=== PATIENT | female | born 1990 | race Caucasian/White ===

== ENCOUNTER → 2024-04-07 15:30 | Outpatient (CLI) | payer OTHER, SELFPAY ==
[2024-04-07 15:57] LABS: Add Manual Diff / Slide Review NO; Basophils Absolute Auto 0 /uL (0-100); Basophils Percent Auto 0.1 % (0-2); Eosinophils Absolute Auto 100 /uL (0-450); Eosinophils Percent Auto 0.5 % (2-4); Hematocrit 37.7 % (36-46); Hemoglobin 13.1 g/dL (12.0-16.0); Lymphocytes Absolute Auto 1700 /uL (1100-4500); Lymphocytes Percent Auto 15.8 % (25-40); Mean Corpuscular HGB Conc 34.6 % (30-36); Mean Corpuscular Hemoglobin 33.8 PG (26-34); Mean Corpuscular Volume 97.7 fL (80-100); Monocytes Absolute Auto 500 /uL (0-900); Monocytes Percent Auto 4.4 % (3-14); Neutrophils Absolute Auto 8600 /uL (1500-7000); Neutrophils Percent Auto 79.2 % (50-75); Platelet Count 229 X10^3/uL (150-400); Red Blood Cell Count 3.86 X10^6/uL (4.0-5.2); Red Cell Distribution Width 13.3 % (11.6-14.8); White Blood Cell Count 10.8 X10^3/uL (4.5-11.0)
[2024-04-07 16:53] LABS: Appearance Urine UA CLEAR; Bilirubin Urine UA NEGATIVE (NEGATIVE); Color Urine UA YELLOW; Glucose Urine UA NEGATIVE (Negative); Ketones Urine UA NEGATIVE (NEGATIVE); Leukocyte Esterase Urine UA NEGATIVE (NEGATIVE); Nitrite Urine UA NEGATIVE (Negative); Occult Blood Urine UA NEGATIVE (Negative); Protein Urine UA NEGATIVE (Negative); Specific Gravity Urine UA <=1.005 (1.000-1.035); Urobilinogen Urine UA 0.2 E.U./dL (0.2)
[2024-04-07 16:56] LABS: pH Urine UA 5.5 (4.5-8.0)
[2024-04-07 17:14] LABS: Hepatitis B Surface Antigen NEGATIVE s/c (NEGATIVE); Rubella Antibody IgG 9.7 IU/mL (>15)
[2024-04-07 17:19] LABS: HIV 1 & 2 Ab/Ag 4th Gen Combo NEGATIVE (NEGATIVE); Hep C Virus Ab w/Reflex Quant NEGATIVE s/c (NEGATIVE)
[2024-04-09 09:39] LABS: Varicella IgG Antibody 857 index (Immune >165)
[2024-04-11 02:55] LABS: RPR Screen Non Reactive (Non Reactive)
== END ==
PROVIDERS: PCP Family Medicine; Referring Provider Family Medicine; Visit Provider Family Medicine
DX: Z34.80 Encounter for supervision of other normal pregnancy, unspecified trimester (principal)
CPT/HCPCS: 36415; 80055; 81003; 86787; 86803; 86850; 86900; 86901; 87086; 87389

== ENCOUNTER → 2024-05-05 10:54 | Outpatient (CLI) | payer OTHER, SELFPAY ==
[2024-05-09 07:22] LABS: AFP, Serum 43.5 ng/mL (.); Estriol, Free 1.74 ng/mL (.); Inhibin A, Dimeric 184.74 pg/mL (.); Inhibin A, MoM 1.09 (.); Maternal Ethnicity Caucasian (.); Maternal Weight 127 lbs (.); Number of Fetuses No (.); OSBR Risk 1 IN 10000 (.); Results Report (.); Test Results *Screen Negative* (.); hCG, MoM 0.45 (.); hCG, Serum 16538 mIU/mL (.)
== END ==
PROVIDERS: PCP Family Medicine; Referring Provider Family Medicine; Visit Provider Family Medicine
DX: Z34.80 Encounter for supervision of other normal pregnancy, unspecified trimester (principal)
CPT/HCPCS: 36415; 82105; 82677; 84702; 86336

== ENCOUNTER → 2024-05-25 15:16 | Outpatient (CLI) | payer OTHER, SELFPAY ==
--- NOTE | 2024-05-25 15:17 | DI.US.S_ITS ---
PROCEDURE: US OB >= 14 WEEKS FETUS INDICATIONS: anatomy scan OUTSIDE/PRIOR DATING DATA: Last menstrual period (LMP): 01/05/2024. LMP-based estimated date of delivery (EVELIN): 10/11/2024. TECHNIQUE: Real-time scanning was performed of the fetus, with image documentation and biometric measurements. Endovaginal scanning: Not performed COMPARISON: None. FINDINGS: General: A single living intrauterine gestation is present. Presentation: Breech. Placenta: Placental position is posterior , without previa. Amniotic fluid index: 10.3 cm, normal range is 5-24 cm. Single deepest vertical pocket is 3.1 cm. heart rate: 135 beats per minute, although distal rated 263 beats per minute. Maternal cervical canal: 4.2 cm long. Normal lower limit is 2.5 cm. biometrics: Biparietal diameter: 5.1 cm, 21 weeks 3 days Head circumference: 18.7 cm, 21 weeks 0 days Abdominal circumference: 18.2 cm, 23 weeks 0 days Femur length: 3.3 cm, 20 weeks 2 days Clinically estimated gestational age: 20 weeks 1 day Composite gestational age from present scan: 21 weeks 3 days Estimated weight and percentile: 448 g, 99th percentile Anatomic survey: Neuro: Ventricles are non-dilated at less than 10 mm. Cisterna magna is normal at 3-11 mm. Cerebellum is normal in size and morphology. Nuchal skin fold: Normal at less than 6 mm between 14-21 weeks gestational age. Face: Nose and lips, facial profile are normal. Spine: No evidence for spina bifida. Heart: 4-chambered heart is present, with normal ventricular outflow tracts. Diaphragm: Diaphragm is intact. Stomach: Left-sided stomach is present. Kidneys: No hydronephrosis. Normal is less than 5 mm in 2nd trimester, less than 7 mm in 3rd trimester. Cord: 3-vessel cord has orthotopic insertion. Bladder: Normal in size. Extremities: All 4 extremities identified. IMPRESSION: Single living intrauterine at 20 weeks 1 day, EVELIN of 10/11/2024. Focal heart rate decelerations down to 63 beats per minute. Short-term follow-up is indicated. Estimated weight of 448 g, 99th percentile. Normal anatomy otherwise. Accurate primary report sent to ordering provider by the technologist at the time of exam. We strive to produce accurate, complete, and clear reports of imaging services. To assist us in improving patient care, this report was composed using standard report templates and voice recognition software. Therefore, it may contain abnormal punctuation, insertions and/or omissions. Occasional wrong-word or sound-alike substitutions may occur. Though we review the report and make efforts to correct it, we do recommend that the report be read carefully in proper context to recognize any text inaccuracies. Dictated by: Gerald Gupta M.D. on 05/25/2024 at 16:55 Approved by: Gerald Gupta M.D. on 05/25/2024 at 16:58
== END ==
PROVIDERS: PCP Family Medicine; Referring Provider Family Medicine; Visit Provider Family Medicine
DX: O36.8320 Maternal care for abnormalities of the fetal heart rate or rhythm, second trimester, not applicable or unspecified (principal); Z3A.21 21 weeks gestation of pregnancy
CPT/HCPCS: 76811

== ENCOUNTER → 2024-06-27 11:09 | Outpatient (CLI) | payer OTHER, SELFPAY ==
[2024-06-27 13:01] LABS: Hematocrit 33.7 % (36-46); Hemoglobin 11.9 g/dL (12.0-16.0)
[2024-06-27 13:41] LABS: GTT (PREG) 1 Hour PP 50gm Dose 137 mg/dL (76-139)
== END ==
PROVIDERS: PCP Family Medicine; Referring Provider Family Medicine; Visit Provider Family Medicine
DX: Z34.80 Encounter for supervision of other normal pregnancy, unspecified trimester (principal)
CPT/HCPCS: 82950; 85014; 85018

== ENCOUNTER → 2024-09-13 15:47 | Outpatient (CLI) | payer OTHER, SELFPAY ==
[2024-09-16 15:36] LABS: Strep Grp B PCR POS for Grp B Strep
== END ==
PROVIDERS: PCP Family Medicine; Visit Provider Family Medicine
DX: Z34.93 Encounter for supervision of normal pregnancy, unspecified, third trimester (principal); Z3A.36 36 weeks gestation of pregnancy
CPT/HCPCS: 87653

== ENCOUNTER 2024-09-21 10:42 | Inpatient (IN) | payer OTHER, SELFPAY ==
--- NOTE | 2024-09-21 13:51 | P.HPOB_ITS ---
OB HPI Date/Time Date of admission: 09/21/24 Date Patient Seen: 09/21/24 Time Patient Seen: 13:00 History of Present Condition Chief complaint: OBS OF LABOR EVELIN Calculator Estimated Delivery Date Method Current WG Current Estimate 10/11/24 LMP (Certain) 37w 1d Estimated Gestational Age (weeks): 37+1 : 3 Para: 1 Narrative: 34-year-old at [place] 37+1 weeks presenting for contractions. Endorses normal movement. Denies vaginal bleeding or denies leakage of fluid. notable for anemia (on iron supplement), history of delivery. Noted onset of contractions around 6:00 a.m. this morning, became increasingly uncomfortable and closer together. care: good care Dating criteria OB: LMP confirmed by 1st trimester US Ultrasounds: normal 1st trimester US and normal mid trimester US Obstetrical complications: none Medical complications OB: other (anemia) Indications Operative indications ( section): previous uterine surgery Preadmission Labs Last OB Lab Results: Blood Type A Positive 04/07/24 15:34 Antibody Screen Negative 04/07/24 15:34 Hct 33.7 % (36-46) L 06/27/24 12:31 Hgb 11.9 g/dL (12.0-16.0) L 06/27/24 12:31 Hep Bs Antigen Negative s/c (NEGATIVE) 04/07/24 15:34 Hepatitis C Antibody Negative s/c (NEGATIVE) 04/07/24 15:34 Rubella Antibody 9.7 IU/mL (>15) L 04/07/24 15:34 VZV IgG Antibody 857 index (Immune >165) 04/07/24 15:34 Glucose 1 Hr 50 gm 137 mg/dL (76-139) 06/27/24 12:31 Group B Strep (PCR) Pos for grp b strep H 09/15/24 11:50 -: Chlamydia screen: unknown, Gonorrhea screen: unknown and Urine: negative Genetic Screens: Quad screen: Normal External Labs -: Urine: negative Prior (ies) Past Pregnancies Del. 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 Delivery Date: 07/30/23 Last Updated by: Vivi Zarate RN passed spontaneously, no complications Evaluation Evaluation Baseline heart rate: 130 Variability: Moderate (11-25) monitor accelerations: Present Monitor Decelerations: Absent Contraction Frequency (minutes): 3 Uterine Contraction Intensity: Moderate Category of Tracing: Reactive Status: Category l Dilation (cm): 3 Effacement (%): 70 station: -3 Position of cervix: posterior Consistency: soft PFSH Surgical History (Updated 03/10/24 @ 11:47 by Valerio Loving MD) [facility] teeth extracted Anesthesia History of hymenectomy (~1991) History of nasal surgery (~01/2012) History of section (~10/2020) Family History (Updated 02/17/24 @ 11:07 by Vivi Zarate RN) Father History of heart disease Hyperlipidemia Mother Hypothyroidism Fibromyalgia Grandfather Hypertension Stroke Lung cancer Smoker History of heart disease Heart attack Grandmother Diabetes mellitus Hypothyroidism Colon cancer Grandfather Hypertension Heart attack History of heart disease Smoker Grandmother Smoker Social History marital status: number of children: 1 household members: spouse and children lives independently: Yes caregiver/support person: Yes housing: house pets and animals: Yes (dogs) education level: college occupational status: unemployed current occupational exposures/hazards: No special kevin needs: No travel history: over 6 months ago seatbelt use: always helmet use: Yes water heater temp set < 120 deg: Yes working smoke detector in home: Yes fire extinguisher in home: Yes carbon monox detector in home: Yes firearms in home: No do you feel safe at home: Yes Smoking Status: Never smoker second hand exposure: No alcohol intake: former (very occasionally when not ) substance use type: does not use during the past year weight has: remained stable well-balanced diet: daily or most days daily servings fruits/ve or more times/day caffeine: Yes (1-2 cups coffee in AM) Type(s) of exercise: walking and other (hiking) Meds Home Medications and Allergies Home Medications Medication Instructions Recorded Confirmed Type famotidine 20 mg tablet 20 mg PO BEDTIME #30 tabs 07/26/24 09/15/24 Rx ferrous sulfate 137 mg (45 mg 137 mg PO DAILY #60 tabs 08/18/24 09/15/24 Rx iron) tablet,extended release vitamins no.121-iron 28 1 tab PO DAILY #90 tabs 08/18/24 09/15/24 Rx mg-folic acid 800 mcg tablet Allergies Allergy/AdvReac Type Severity Reaction Status Date / Time grass pollen AdvReac Unknown Verified 09/15/24 11:46 house dust mite AdvReac Unknown Verified 09/15/24 11:46 mold AdvReac Unknown Verified 09/15/24 11:46 ragweed pollen AdvReac Unknown Verified 09/15/24 11:46 tree and shrub pollen AdvReac Unknown Verified 09/15/24 11:46 OB Exam Narrative Exam Narrative: General: Well-nourished, no distress HEENT: NC/AT, EOMI, moist mucous membranes CV: RRR, normal S1 S2, no m/g/r Resp: CTAB Abd: Gravid, soft, NTND, +BS Ext: Full ROM, no edema Skin: No rash or lesions Neuro: A&O x3, normal tone, no focal deficits Assessment and Plan Assessment and Plan Assessment and Plan narrative: 34-year-old at [place] 37+1 weeks presenting for labor. notable for anemia and history of delivery. Cervix has changed from 1.5 cm to 3 cm dilation over the course of 2 hours with persistent contractions despite IV fluid bolus. -admit to L&D -urgent rLTCS due to onset of labor Consent form for section was reviewed with the patient. Risk of reaction to medication or anesthesia, risk of bleeding enough to require blood transfusion which she is agreeable to, risk of infection, risk of damage to internal structures such as bowel, bladder, ureters that could require additional surgery to repair. Consent form signed and questions answered. Pre- op instructions reviewed. Precautions reviewed. Time-Based Coding :: 40 minutes spent with patient and on the chart (including review of chart, obtaining history, exam, reviewing outside data, placing orders, documenting exam and treatment plan, and counseling patient) on 09/21/2024.
[2024-09-21 13:54] VITALS: BP 123/77
[2024-09-21] MEDS: CITRIC ACID/SODIUM CITRATE 15 ML SOLUTION 30 ML PO (14:08)
[2024-09-21] MEDS: LACTATED RINGERS 1,000 ML 999 ML IV ×2 (14:09→15:18)
[2024-09-21 14:18] LABS: Add Manual Diff / Slide Review NO; Basophils Absolute Auto 0 /uL (0-100); Basophils Percent Auto 0.1 % (0-2); Eosinophils Absolute Auto 0 /uL (0-450); Hematocrit 36.1 % (36-46); Hemoglobin 12.2 g/dL (12.0-16.0); Lymphocytes Absolute Auto 1000 /uL (1100-4500); Lymphocytes Percent Auto 6.7 % (25-40); Mean Corpuscular HGB Conc 33.8 % (30-36); Mean Corpuscular Hemoglobin 34.5 PG (26-34); Monocytes Absolute Auto 500 /uL (0-900); Monocytes Percent Auto 3.4 % (3-14); Neutrophils Absolute Auto 13700 /uL (1500-7000); Neutrophils Percent Auto 89.8 % (50-75); Platelet Count 170 X10^3/uL (150-400); Red Blood Cell Count 3.54 X10^6/uL (4.0-5.2); Red Cell Distribution Width 13.3 % (11.6-14.8); White Blood Cell Count 15.3 X10^3/uL (4.5-11.0)
[2024-09-21] MEDS: CEFAZOLIN 2 GM/100 ML PREMIX 100 ML IV (14:27)
--- NOTE | 2024-09-21 15:14 | SUR.OPER ---
Supine on Padded OR bed, head on pillow, safety belt at thigh, arms secured on padded arm boards at <90 degrees abduction. Bump under right buttock. Legs uncrossed and blanket to lower legs.
--- NOTE | 2024-09-21 15:36 | SUR.OPER ---
PRE-PROCEDURE HEART RATE 141 VIABLE BABY BOY BORN AT 14:57 PLACENTA DELIVERY AT 15:00 APGARS 9 FOR 1 MINUTE 9 FOR 5 MINUTES
[2024-09-21 15:55] VITALS: BP 100/29; PULSE 99; RESP 15; TEMP 36.1; O2SAT 100
[2024-09-21 16:00] VITALS: BP 91/50; PULSE 98; RESP 13; O2SAT 100
[2024-09-21 16:07] VITALS: BP 102/59; PULSE 104; RESP 14; TEMP 36.3; O2SAT 99
[2024-09-21] MEDS: ONDANSETRON 4 MG/2 ML INJ IV (17:56)
--- NOTE | 2024-09-21 18:26 | P.OP_ITS ---
Operative Date/Time/Diagnoses Date of procedure: 09/21/24 Time of procedure: 14:50 Pre-op diagnosis: Term labor, history of delivery Post-op diagnosis: same (Delivered) Procedure & Clinicians Procedure: Repeat low transverse section Same procedure as scheduled: Yes Indications: Previous delivery Surgeon: Valerio Loving Click Yes if Unassisted: No Transportation Maintenance Specialist: Celeste Rapp Reason for Transportation Maintenance Specialist: Transportation Maintenance Specialist required for the safe, effective, and timely completion of this surgery. The drafter assistant was necessary to retract upon entry into the abdomen and uterus. Assisted with delivery of the with fundal pressure. Assisted with closure with retraction, clipping of suture, and closure of the contralateral fascia. Anesthesia Type: Spinal Operative Notes Findings: Live male in cephalic position, normal tubes and ovaries Closure Type: primary Specimen(s): cord blood Intraoperative meds administered: Ketorolac and Pitocin Applied: Catheter Estimated Blood Loss (mL): 600 Blood products transfused: none Procedure in detail: Patient was taken to the operating room where spinal anesthesia was found to be adequate. She was then prepared and draped in the usual sterile fashion in the dorsal supine position with a leftward tilt. A Pfannenstiel incision was then made with a scalpel and carried through to the underlying layer of fascia sharply. The fascia was nicked in the midline, and the incision extended laterally with blunt traction. The superior aspect of the fascial incision was then grasped with Gerry clamps, elevated, and the underlying rectus muscles dissected off bluntly. Attention was then turned to the inferior aspect of the incision which, in similar fashion, was grasped, tented up with Gerry clamps, and rectus muscles dissected off bluntly. The rectus muscles were then in the midline, and peritoneum identified, tented up, and entered bluntly. The peritoneal opening was then extended superiorly and inferiorly with good visualization of the bladder. An Aroldo O protector-retractor was inserted and the lower uterine segment incised in a transverse fashion with the scalpel. The uterine incision was then extended laterally with blunt traction. Upon entering the amniotic sac there was moderate amount of clear amniotic fluid. The bladder blade was removed and the infant head delivered atraumatically. The nose and mouth were suctioned with bulb suction, and the remainder of the body delivered without difficulty. The cord was clamped and cut, and the was handed off to the waiting care team. Cord blood was collected and sent. The placenta was then removed by manual expression; the uterus was exteriorized and cleared of all clots and debris. The uterine incision was repaired with 0 Vicryl in a running, locked fashion. A second layer of same suture was used to obtain excellent hemostasis. Tubes and ovaries were examined and were found to be normal, and the uterus returned to the abdomen. The gutters were cleared of all clots. The fascia was reapproximated with 0 Vicryl in a running fashion. The subcutaneous layer was copiously irrigated with warm normal saline. The subcutaneous fat was reapproximated with 3-0 Vicryl. The skin was closed with 3-0 Monocryl. Steri-Strips were applied to the incision and an Aquacel dressing was placed. The uterus was expressed of a small amount of old blood. Sponge, lap, and needle counts were correct x2. The patient tolerated the procedure well and was taken to the recovery room in stable condition. Complications: none Baby 1: Infant Gender: Male Presentation: vertex Position: Right Occiput Transverse Details: back down Placental Delivery Description: Expressed Cord Vessel Description: 3 Vessels score (1 min): 9 score (5 min): 9 weight: 7 lb 10.295 oz Post-operative Condition: stable Disposition: PACU Aftercare: routine postop
[2024-09-21] MEDS: ONDANSETRON 4 MG ODT PO (18:34)
[2024-09-21] MEDS: diphenhydrAMINE 50 MG/ML VIAL IV (18:53)
[2024-09-21] MEDS: FAMOTIDINE 20 MG TABLET PO (21:19)
[2024-09-21] MEDS: KETOROLAC 30 MG/ML VIAL IV (21:19)
[2024-09-22] MEDS: ACETAMINOPHEN 325 MG TABLET 650 MG PO ×4 (00:51→19:29)
[2024-09-22] MEDS: diphenhydrAMINE 50 MG/ML VIAL IV (03:01)
[2024-09-22] MEDS: KETOROLAC 30 MG/ML VIAL IV ×2 (03:01→09:11)
[2024-09-22 06:57] LABS: Hematocrit 29.8 % (36-46); Hemoglobin 10.3 g/dL (12.0-16.0)
[2024-09-22 08:00] VITALS: BP 102/59; PULSE 104; RESP 14; TEMP 36.3
[2024-09-22] MEDS: PRENATAL VIT,CALC/IRON/FOLIC 1 TABLET 1 TAB PO (09:10)
[2024-09-22] MEDS: DOCUSATE 100 MG CAPSULE PO (09:10)
--- NOTE | 2024-09-22 09:13 | PM.OBPN.1 ---
Subjective - OB Subjective Patient comments: no complaints, pain well controlled, tolerating diet and flatus present baby status: doing well and nursing well [place] feeding status: exclusively breast feeding Date Patient Seen: 09/22/24 Time Patient Seen: 17:50 Exam Vital Signs (past 8 hours): Oxygen Delivery Method Room Air Narrative Exam Narrative: General: Well-appearing, well-nourished, no distress HEENT: Moist mucous membranes, no pallor CV: Regular rate and rhythm, no murmur auscultated Resp: CTAB, comfortable work of breathing Abdomen: Soft, bowel sounds present, fundus firm below umbilicus with appropriate tenderness, Aquacel dressing removed, incision c/d/i w/Steri-Strips in place Extremities: No edema, no calf tenderness or evidence of DVT Objective Labs 09/22/24 06:32 Labs: Laboratory Results - last 24 hr 09/21/24 09/22/24 13:15 06:32 WBC 15.3 H RBC 3.54 L Hgb 12.2 10.3 L Hct 36.1 29.8 L MCV 102.0 H MCH 34.5 H MCHC 33.8 RDW 13.3 Plt Count 170 Neut % (Auto) 89.8 H Lymph % (Auto) 6.7 L [place] % (Auto) 3.4 Eos % (Auto) 0.0 L Baso % (Auto) 0.1 Neut # (Auto) 60144 H Lymph # (Auto) 1000 L [place] # (Auto) 500 Eos # (Auto) 0 Baso # (Auto) 0 Blood Type A Positive Antibody Screen Negative Assessment & Plan Assessment and Plan (1) delivery delivered: Status: Acute (2) Rubella non-immune status, antepartum: Status: Acute (3) Anemia affecting : Status: Acute Plan day: 1 plan OB: routine postop care Comments: POD #1 s/p rLTCS Clinically stable, recovering well Pain management as needed support s/p consult Encourage ambulation, flatus/BM prior to discharge Bleeding appropriate for course, monitor Likely discharge home POD #2 Time-Based Coding :: 20 minutes spent with patient and on the chart (including review of chart, obtaining history, exam, reviewing outside data, placing orders, documenting exam and treatment plan, and counseling patient) on 09/22/2024.
[2024-09-22] MEDS: IBUPROFEN 600 MG TABLET PO ×2 (16:57→23:47)
[2024-09-22] MEDS: FAMOTIDINE 20 MG TABLET PO (21:10)
[2024-09-23] MEDS: ACETAMINOPHEN 325 MG TABLET 650 MG PO ×2 (05:01→14:18)
[2024-09-23] MEDS: IBUPROFEN 600 MG TABLET PO ×2 (05:01→11:02)
[2024-09-23] MEDS: PRENATAL VIT,CALC/IRON/FOLIC 1 TABLET 1 TAB PO (09:09)
[2024-09-23] MEDS: DOCUSATE 100 MG CAPSULE PO (09:09)
[2024-09-23] MEDS: MEASLES,MUMPS,RUBELLA VACC/PF 0.5 ML VIAL SUBCUT (11:55)
--- NOTE | 2024-09-23 12:55 | P.DS_ITS ---
Discharge Providers Provider Date of admission: 09/21/24 10:42 Discharge Date: 09/23/24 Primary care physician: Kamila Taylor DO Consults: 09/21/24 18:19 Consult to [place] Routine Comment: Discharge provider: Valerio Loving MD Summary Hospital Course Date Patient Seen: 09/23/24 Time Patient Seen: 12:15 Diagnoses: # delivery delivered #anemia affecting # mother Hospital Course: Admitted on 09/21/2024 for rLTCS at GA 37+1 weeks due to onset of labor. She had an uncomplicated delivery of a live male infant. Her course was uncomplicated. At discharge patient is ambulating well, tolerating normal diet, breast-feeding without difficulty, and pain is adequately controlled. She reports bleeding is less than normal menses. Peripartum Data Infant Delivery Method: Section Procedures: Repeat low transverse section complications: none 1: Gender: Male Disposition of : home Discharge Diagnosis (1) delivery delivered: Status: Acute (2) Rubella non-immune status, antepartum: Status: Acute (3) Anemia affecting : Status: Acute Status at Discharge Cognitive/behavioral status at discharge: oriented Functional status at discharge: independent ambulation Overall status at discharge: patient is progressing back to baseline Time Spent with Patient Time attestation: Total time spent providing and/or coordinating discharge services: 25 minutes Objective Labs 09/22/24 06:32 Exam Vital Signs (past 8 hours): Oxygen Delivery Method Room Air Narrative Exam Narrative: General: Well-appearing, well-nourished, no distress HEENT: Moist mucous membranes, no pallor CV: Regular rate and rhythm, no murmur auscultated Resp: CTAB, comfortable work of breathing Abdomen: Soft, bowel sounds present, fundus firm below umbilicus with appropriate tenderness, incision c/d/i w/Steri-Strips in place Extremities: No edema, no calf tenderness or evidence of DVT Discharge Plan Discharge Plan Patient Disposition: Home Discharge orders & Medications Prescriptions: New acetaminophen 325 mg Tablet 650 mg PO Q6H Qty: 120 1RF docusate sodium 100 mg Capsule 100 mg PO DAILY Qty: 30 1RF ibuprofen 600 mg Tablet 600 mg PO Q6H Qty: 90 1RF Purelan Cream 1 applic topical PRN PRN (Reason: Skin protectant) Qty: 7 5RF oxycodone 5 mg Tablet 5 mg PO Q4-6H PRN (Reason: Pain, Moderate (4-6)) Qty: 20 0RF Continued famotidine 20 mg tablet 20 mg PO BEDTIME Qty: 30 3RF ferrous sulfate 137 mg (45 mg iron) tablet extended release 137 mg PO DAILY Qty: 60 0RF PNV no.229-[id number] acid 28 mg iron- 800 mcg tablet 1 tab PO DAILY Qty: 90 3RF Follow up/Referrals: Valerio Loving MD [Physician] - 09/26/24 10:30 am (Incision check 6 week follow up appt on 11/01/2024 @ 1130) Kamila Taylor DO [Primary Care Provider] - Visit Report/Discharge Packet Stand Alone Forms: Discharge: Care Discharge Data Primary Care Provider: Kamila Taylor Discharges patient from system. Discharge Date/Time: 09/23/24 14:30
== END 2024-09-23 14:30 | disposition home or self-care (01) | DRG 788 ==
PROVIDERS: Family Medicine; Admitting Provider Student in an Organized Health Care Education/Training Program; PCP Family Medicine; Referring Provider Student in an Organized Health Care Education/Training Program; Visit Provider Student in an Organized Health Care Education/Training Program
PROC: 10D00Z1 Extraction of Products of Conception, Low, Open Approach (ICD-10-PCS; CPT 59514; principal; 2024-09-21 14:00)
DX: O34.211 Maternal care for low transverse scar from previous cesarean delivery (principal); Z3A.37 37 weeks gestation of pregnancy; Z37.0 Single live birth; O99.824 Streptococcus B carrier state complicating childbirth
CPT/HCPCS: 36415; 59050; 59510; 59514; 85014; 85018; 85025; 86850; 86900; 86901; 96360; A9270; G0379; J0690; J1100; J1200; J1885; J2274; J2405; J2704; J3010